=== PATIENT | male | born 1985 ===

== ENCOUNTER 2018-05-21 16:15 | Emergency (ER) | payer OTHER ==
[2018-05-21 16:31] VITALS: RESP 18
--- NOTE | 2018-05-21 16:42 | ED PDOC ---
HPI: Chest Pain Time Seen by Provider: 05/21/18 16:28 Chief Complaint (Nursing): Chest Pain History Per: Patient Onset/Duration Of Symptoms: Days (14) Current Symptoms Are (Timing): Intermittent Episodes Severity: Mild Quality: Other (discomfort) Associated Symptoms: denies: Dyspnea, Diaphoresis Modifying Factors: None Exacerbating Factors: None Alleviating Factors: None Additional Complaint(s): Chest discomfort intermittently x 2 weeks. Not assoc with SOB. Not assoc with exertion or rest, random. 1 episode worsened by inspiration. Seen by apron operator and scheduled for stress test. No family h/o premature cardiac disease. Past Medical History Vital Signs: Last Vital Signs Temp 98.4 F 05/21/18 16:28 Pulse 90 05/21/18 16:28 Resp 18 05/21/18 16:28 BP 142/96 H 05/21/18 16:28 Pulse Ox 98 05/21/18 16:28 - Medical History PMH: No Chronic Diseases - Family History Family History: States: Unknown Family Hx - Home Medications Home Medications: Ambulatory Orders Medication Instructions Recorded Non-Formulary 1 ea .ROUTE Q6 #1 ea 05/21/18 - Allergies Allergies/Adverse Reactions: Allergies Allergy/AdvReac Type Severity Reaction Status Date / Time No Known Allergies Allergy Verified 05/21/18 16:27 Review of Systems ROS Statement: Except As Marked, All Systems Reviewed And Found Negative Cardiovascular: Positive for: Chest Pain Physical Exam - Reviewed Nursing Documentation Reviewed: Yes Vital Signs Reviewed: Yes - Physical Exam Appears: Positive for: Non-toxic, No Acute Distress Head Exam: Positive for: ATRAUMATIC, NORMAL INSPECTION, NORMOCEPHALIC Skin: Positive for: Normal Color, Warm, DRY Eye Exam: Positive for: EOMI, Normal appearance, PERRL ENT: Positive for: Normal ENT Inspection Neck: Positive for: Normal, Painless ROM Cardiovascular/Chest: Positive for: Regular Rate, Rhythm Respiratory: Positive for: CNT, Normal Breath Sounds Gastrointestinal/Abdominal: Positive for: Normal Exam, Soft Back: Positive for: Normal Inspection Extremity: Positive for: Normal ROM Neurologic/Psych: Positive for: Alert, Oriented - ECG O2 Sat by Pulse Oximetry: 98 Medical Decision Making Medical Decision Making: Advised 24 hr obseravtion to r/o ACS. Pt prefers to f/u outpatient. Aware of risks including [facility] and . advised to return to ED immediately if chest pain recurrs. Disposition - Clinical Impression Clinical Impression: Chest pain - Patient ED Disposition Is Patient to be Admitted: No Counseled Patient/Family Regarding: Studies Performed, Diagnosis, Need For Followup, Rx Given - Disposition Referrals: Mahad Oviedo MD [Staff Provider] - Disposition: Routine/Home Disposition Time: 17:38 Condition: FAIR Prescriptions: Non-Formulary 1 ea .ROUTE Q6 #1 ea Instructions: Chest Pain Forms: [employer] (Macedonian)
[2018-05-21 17:49] VITALS: BP 137/75; PULSE 84; TEMP 98.7; O2SAT 99
== END 2018-05-21 17:45 | disposition home or self-care (01) ==
LOC: H.ER 16:15
DX: R07.9 Chest pain, unspecified (principal)